=== PATIENT | female | born 1955 | race Caucasian/White ===

== ENCOUNTER → 2021-12-16 | Outpatient (CLI) | payer MEDICARE ==
--- NOTE | 2021-12-16 16:38 | BD ---
EXAMINATION TYPE: Axial Bone Density DATE OF EXAM: 12/16/2021 COMPARISON: NONE CLINICAL HISTORY: 66 year old Female. ICD-10 CODE: N958 MENOPAUSAL DISORDERS Height: 60 Weight: 126.9 FRAXIN RISK QUESTIONS: Alcohol (3 or more units per day): no Family History (Parent hip fracture): no Glucocorticoids (More than 3mos): no (Ex: prednisone, prednisolone, methylprednisolone, dexamethasone, and hydrocortisone). History of Fracture in Adulthood: no Secondary Osteoporosis: 1. Type 1 Diabetes: no 2. Hyperthyroidism: no 3. Menopause before 45: no 4. Malnutrition: no 5. Chronic liver disease: no Rheumatoid Arthritis: no Current Tobacco Use: no RISK FACTORS HISTORY OF: Surgery to Spine/Hip(right/left)/Wrist (right/left): no Family History of Osteoporosis: no Active: yes Diet low in dairy products/other sources of calcium: yes Postmenopausal woman: yes Lost more than 2 inches in height since high school: no MEDICATIONS: Thyroid Medications: synthroid How Lon years Additional History: EXAM MEASUREMENTS: Bone mineral densitometry was performed using the [employer]. Bone mineral density as measured about the Lumbar spine is: ----- L1-L4(G/cm2): 1.273 T Score Values are as follows: ----- L1: -0.5 ----- L2: 1.6 ----- L3: 2.0 ----- L4: 0.1 ----- L1-L4: 0.9 Bone mineral density has: increased 11.9 % since study of: 01.12.2014 Bone mineral density about the R hip (g/cm2): 0.808 Bone mineral density about the L hip (g/cm2): 0.776 T Score values are as follows: -----R Neck: -1.7 -----L Neck: -1.9 -----R Total: -1.2 -----L Total: -1.5 Bone mineral density has: decreased -6.9 % since study of: 01.12.2014 FRAX%s: The graph provided illustrates a 11.3% chance for a major osteoporotic fx and a 1.9% chance f or the hips probability for fx in 10 years time. IMPRESSION: Osteopenia (T Score between -2.5 and -1). There is slightly increased risk of fracture and the patient may be considered for treatment. Re-Screen 2-5 years. NOTE: T-SCORE=SD OF THE YOUNG ADULT MEAN.
--- NOTE | 2021-12-19 08:36 | MM ---
Reason for Exam: Screening (asymptomatic). Last mammogram was performed 6 year(s) and 6 month(s) ago. Patient History: First Full-Term at age 22. Postmenopausal. Sister had breast cancer, age 50. Risk Values: Aileen 5 year model risk: 3.0%. NCI Lifetime model risk: 9.5%. Prior Study Comparison: 02/14/1999 Bilateral Screening Mammogram, [facility]. 12/11/2012 Bilateral Screening Mammogram, [facility]. 07/06/2015 Bilateral Screening Mammogram, [facility]. Tissue Density: The breast tissue is heterogeneously dense. This may lower the sensitivity of mammography. Findings: Analyzed By CAD. No suspicious groups of microcalcifications, spiculated or lobular masses, architectural distortion or other secondary signs of malignancy are mammographically apparent. Overall Assessment: Benign, BI-RAD 2 Management: Screening Mammogram of both breasts in 1 year. A negative mammogram report should not preclude additional follow up of suspicious palpable abnormalities. Patient should continue monthly self breast exam. A clinical breast exam by your physician is recommended on an annual basis and results should be correlated with mammographic findings. Electronically signed and approved by: Shamir Segura D.O. Radiologis
== END | disposition home or self-care (01) ==
LOC: RADBDWWP 14:04
PROVIDERS: ATTEND Internal Medicine
DX: Z12.31 Encounter for screening mammogram for malignant neoplasm of breast (principal); Z13.820 Encounter for screening for osteoporosis; M85.89 Other specified disorders of bone density and structure, multiple sites; Z78.0 Asymptomatic menopausal state; Z80.3 Family history of malignant neoplasm of breast
CPT/HCPCS: 77063; 77067; 77080

== ENCOUNTER → 2022-01-23 | Outpatient (CLI) | payer MEDICARE | END | disposition home or self-care (01) | LOC: LABWHC1 12:47 | PROVIDERS: ATTEND Internal Medicine | DX: E03.9 Hypothyroidism, unspecified (principal) | CPT/HCPCS: 36415; 84443 ==

== ENCOUNTER → 2022-01-23 | Outpatient (CLI) | payer MEDICARE ==
--- NOTE | 2022-01-23 13:55 | XR ---
EXAMINATION TYPE: XR knee complete LT DATE OF EXAM: 01/23/2022 CLINICAL HISTORY: Pain from fall injury. TECHNIQUE: Three views of the left knee are obtained. COMPARISON: None. FINDINGS: There is no acute fracture/dislocation evident in left knee. Moderate narrowing and medial spurring medial tibiofemoral compartment. There is broad-based ossific projection posteriorly distal metaphyseal level of the left femur likely reflects focal osteochondroma. If patient has pain locali zed to this level one should consider dedicated MRI to evaluate and exclude other osseous lesion. Ove rlying soft tissue is unremarkable. IMPRESSION: There is no acute fracture or dislocation in the left knee.
--- NOTE | 2022-01-23 13:56 | XR ---
EXAMINATION TYPE: XR shoulder complete LT DATE OF EXAM: 01/23/2022 CLINICAL HISTORY: Pain. TECHNIQUE: Three views of the left shoulder are obtained. COMPARISON: None. FINDINGS: Osseous structures are demineralized. There is no acute fracture/dislocation evident in the left shoulder. Acromioclavicular joint appears within normal limits. Distal acromion morphology unre markable. There is narrowing at the glenohumeral joint most prominent on externally rotated views. No significant spurring. The visualized ribs are intact. IMPRESSION: As above.
== END | disposition home or self-care (01) ==
LOC: RADXRMAIN 13:16
PROVIDERS: ATTEND Internal Medicine
DX: M25.562 Pain in left knee (principal); M25.512 Pain in left shoulder

== ENCOUNTER → 2023-01-17 | Outpatient (CLI) | payer MEDICARE ==
--- NOTE | 2023-01-17 14:03 | XR ---
EXAMINATION TYPE: XR shoulder complete 3 views LT DATE OF EXAM: 01/17/2023 Comparison: 01/23/2022 Clinical History: 67-year-old female [id number] PAIN LT SHLD Findings: Progressive severe, [id number] glenohumeral joint OA with progressive bulky humeral head spurring. Subacromial space appears preserved but there is some bony irregularity at the greater tuberosity. AC joint appears intact. No acute fracture, subluxation, dislocation. Suspect a band of atelectasis at the peripheral left base. Impression: Progressive severe, [id number] glenohumeral joint OA. There may be underlying rotator cuff tendinop athy as well.
== END | disposition home or self-care (01) ==
LOC: RADXRYALE 11:07
PROVIDERS: ATTEND Internal Medicine
DX: M19.012 Primary osteoarthritis, left shoulder (principal)